=== PATIENT | female | born 1975 | race Caucasian/White ===

== ENCOUNTER 2023-06-01 08:50 | Outpatient (CLI) | payer OTHER, SELFPAY ==
--- NOTE | ~2023-06-01 | MM_ITS ---
EXAMINATION: MM screening [facility] BI w brigida HISTORY: Screening mammogram TECHNIQUE: Craniocaudal and mediolateral oblique 3-D tomosynthesis images were obtained and synthetic 2-D images were generated. CAD analysis was submitted and interpreted. COMPARISON: No prior mammogram is available for comparison at this institution. BREAST PARENCHYMAL COMPOSITION: There are scattered areas of fibroglandular density. FINDINGS: Scattered occasional bilateral benign microcalcifications. There is no evidence of suspicio us mass, calcification, or architectural distortion to suggest malignancy in either breast. IMPRESSION: 1. No mammographic evidence of malignancy. 2. Recommend routine screening mammography in one year. BI-RADS Category 2: Benign finding(s). Reviewed, dictated and finalized at location A.
== END 2023-06-01 08:51 | disposition home or self-care (01) ==
LOC: ANHIMG 08:55
PROVIDERS: Visit Provider Obstetrics & Gynecology
DX: Z12.31 Encounter for screening mammogram for malignant neoplasm of breast (principal)
CPT/HCPCS: 77063; 77067

== ENCOUNTER 2024-07-20 10:10 | Outpatient (CLI) | payer OTHER, SELFPAY ==
--- NOTE | ~2024-07-20 | MM_ITS ---
EXAMINATION: MM screening [facility] BI w brigida HISTORY: Screening TECHNIQUE: Craniocaudal and mediolateral oblique 3-D tomosynthesis images were obtained and synthetic 2-D images were generated. CAD analysis was submitted and interpreted. COMPARISON: 06/01/2013 BREAST PARENCHYMAL COMPOSITION: Not dense: There are scattered areas of fibroglandular density. FINDINGS: There is no evidence of suspicious mass, calcification, or architectural distortion to sugg est malignancy in either breast. There has been no suspicious interval change. IMPRESSION: 1. No mammographic evidence of malignancy. 2. Recommend routine screening mammography in one year. BI-RADS Category 1: Negative Reviewed, dictated and finalized at location B.
== END 2024-07-20 10:11 | disposition home or self-care (01) ==
LOC: ANHIMG 10:12
PROVIDERS: Visit Provider Obstetrics & Gynecology
DX: Z12.31 Encounter for screening mammogram for malignant neoplasm of breast (principal)
CPT/HCPCS: 77063; 77067